=== PATIENT | female | born 1995 | race Two or more races ===

== ENCOUNTER 2024-07-16 18:18 | Observation (INO) | payer BC, SELFPAY ==
[2024-07-16] VITALS (30 sets, daily range): BP systolic 118–132; BP diastolic 63–77; PULSE 81–103; RESP 18–96; TEMP 36.9; O2SAT 97–100; BMI 33.6
--- NOTE | 2024-07-16 18:38 | XR_ITS ---
Examination: OB Transvaginal ultrasound of the pelvis, complete Technique: Transvaginal sonographic images pelvis performed using gamble scale imaging Exam date and time: July 16, 2024 at 1930 hrs. Indications: Vaginal bleeding and pelvic contractions beginning today Findings: Cervix 2.1 cm with funneling, measurement at the internal os 28 mm Impression: Marked cervical funneling .
[2024-07-16 18:53] LABS: Collection Type, Urine Clean Catch
[2024-07-16 19:02] LABS: Bilirubin,Urine Negative (Negative); Blood,Urine 2+ (Negative); Clarity,Urine Clear (Clear/Hazy); Color,Urine Colorless (Lt Yel-Yel); Culture Indicated,Urine Not Indicated; Glucose, Urine Negative (Negative); Ketones,Urine Negative (Negative); Leukocyte Esterase,Urine Negative (Negative); Nitrite,Urine Negative (Negative); PH,Urine 6.5 (5.0-7.0); Protein,Urine Negative (Neg - Trace); RBC,Urine 18 /hpf (0-3); Specific Gravity,Urine 1.008 (1.001-1.035); Squamous Epithelial Cell,Urine < 1 /hpf (0-5); Urobilinogen,Urine Negative mg/dL (0.0-1.0); WBC,Urine 1 /hpf (0-5)
[2024-07-16 19:11] LABS: Amphetamine/Metham Scrn,Ur OB Negative (Negative); Benzoylecgonine Screen, Ur OB Negative (Negative); Opiate Screen,Urine OB Negative (Negative); THC Screen,Urine OB Negative (Negative)
[2024-07-16 19:25] LABS: Basophils % (Auto) 0 % (0-2.5); Eosinophils # (Auto) 0.1 Thou/mm3 (0.0-0.5); Eosinophils % (Auto) 1 % (0-10); Hematocrit 35.9 % (36.0-46.0); Hemoglobin 11.9 g/dL (12.0-16.0); Immature Granulocytes % (Auto) 1 % (0-0); Immature Granulocytes Auto 0.06 Thou/mm3 (0.00-0.00); Lymphocytes # (Auto) 1.9 Thou/mm3 (1.0-4.8); Lymphocytes % (Auto) 21 % (10-50); Mean Corpuscular HGB Conc 33.1 g/dl (31.0-37.0); Mean Corpuscular Hemoglobin 28.5 pg (25.0-35.0); Mean Corpuscular Volume 86 fL (80-100); Monocytes # (Auto) 0.6 Thou/mm3 (0.0-0.8); Monocytes % (Auto) 6 % (0-12); Neutrophils # (Auto) 6.4 Thou/mm3 (1.8-7.7); Neutrophils % (Auto) 71 % (37-80); Nucleated Red Blood Cell % 0 /100 WBC (0); Platelet Count 294 Thou/mm3 (140-440); RDW Standard Deviation 46.5 fL (36.4-46.3); Red Blood Count 4.18 Miln/mm3 (4.00-5.20)
--- NOTE | 2024-07-16 19:34 | XR_ITS ---
Examination: Complete OB ultrasound greater than 14 weeks Date and time of exam: July 16, 2024 1958 hrs. Indications: Onset vaginal bleeding today Findings: Viable intrauterine single fetus with single amniotic sac presentation cephalic Cardiac motion 137 BPM Placenta posterior grade 2 Amniotic fluid index 16.2 cm spine maternal right Cervix 2.1 cm Ovaries obscured by bowel gas. Composite estimated gestational age based on BPD, head circumference, abdominal circumference, femur length is 27 weeks 1 day Estimated weight 102 g. Survey of intracranial anatomy, spinal anatomy, abdominal anatomy, four-chamber heart performed with no abnormalities identified. Impression: Viable intrauterine gestation cephalic presentation.
[2024-07-16 20:18] LABS: Alanine Aminotransferase 23 U/L (10-49); Albumin/Globulin Ratio 1.7 (1.2-2.2); Alkaline Phosphatase 68 U/L (46-116); Anion Gap 9 (7-16); Aspartate Amino Transferase 23 U/L (0-34); BUN/Creatinine Ratio 10 Ratio (12-20); Bilirubin,Total 0.3 mg/dL (0.3-1.2); Blood Urea Nitrogen < 5 mg/dL (9-23); Calcium 9.5 mg/dL (8.3-10.6); Calcium (Corrected) 9.5 mg/dL (8.5-10.1); Carbon Dioxide 24.2 mMol/L (20.0-31.0); Chloride 106 mMol/L (98-107); Creatinine (Component) 0.5 mg/dL (0.6-1.3); Estimated Creatinine Clearance 192.3 mL/min (>60); Globulin 2.4 gm/dL (2.3-3.5); Glucose 116 mg/dL (74-106); Osmolality,Calculated 275 (275-295); Potassium 3.9 mMol/L (3.4-5.1); Sodium 139 mMol/L (136-145); Total Protein 6.4 gm/dL (5.7-8.2); eGFR > 60 See Note
[2024-07-16 20:19] LABS: Fibrinogen 490 mg/dL (175-375); INR 0.9 (0.9-1.3); Partial Thromboplastin Time 27.3 Seconds (22.0-36.0); Prothrombin Time 10.2 Seconds (9.0-12.2)
--- NOTE | 2024-07-16 22:11 | ESHP_ITS ---
Documentation for date of: 07/16/24 OB Labor/Induct. HPI History of Present Illness History of present illness: 28 yo at 26+3 who presents with vaginal bleeding. notable for subchorionic bleeding in the 1TM. Patient reports having clots today. Reports both bright red bleeding and darker brown blood. No intercourse, no abdominal trauma. No pain or contractions. Normal movement. No pelvic pain and discharge. History of Present Adequate Care: Yes Labs Narrative: Rh positive Meds Home Medications and Allergies Home Medications ?Medication ?Instructions ?Recorded ?Confirmed ?Type vits no.130-ferrous fum 1 tab PO QDAY 07/16/24 07/16/24 History 27 mg iron-folic acid 800 mcg tablet ( Vitamin) Allergies Allergy/AdvReac Type Severity Reaction Status Date / Time No Known Allergies Allergy Verified 07/16/24 18:40 OB Exam Physical Exam Vital signs: Temp Pulse Resp BP Pulse Ox 98.5 F 81 18 132/77 H 100 07/16/24 18:35 07/16/24 19:16 07/16/24 18:35 07/16/24 19:16 07/16/24 21:49 Narrative: GEN: NAD RESP normal work of breathing ABD: gravid, non tender EXT: no calf tenderness SVE: closed/long/high FHT: Reactive, no decelerations, mod rena [place]: quiet US: Examination: Complete OB ultrasound greater than 14 weeks Date and time of exam: July 16, 2024 1958 hrs. Indications: Onset vaginal bleeding today Findings: Viable intrauterine single fetus with single amniotic sac presentation cephalic Cardiac motion 137 BPM Placenta posterior grade 2 Amniotic fluid index 16.2 cm spine maternal right Cervix 2.1 cm Ovaries obscured by bowel gas. Composite estimated gestational age based on BPD, head circumference, abdominal circumference, femur length is 27 weeks 1 day Estimated weight 102 g. Survey of intracranial anatomy, spinal anatomy, abdominal anatomy, four-chamber heart performed with no abnormalities identified. Impression: Viable intrauterine gestation cephalic presentation. TVUS: Findings: Cervix 2.1 cm with funneling, measurement at the internal os 28 mm Impression: Marked cervical funneling OB Results Labs 07/16/24 18:58 07/16/24 18:58 Labs: Short CBC 07/16/24 Range/Units 18:58 WBC 9.0 (3.6-11.0) Thou/mm3 Hgb 11.9 L (12.0-16.0) g/dL Hct 35.9 L (36.0-46.0) % Plt Count 294 (140-440) Thou/mm3 BMP 07/16/24 18:58 Sodium 139 Potassium 3.9 Chloride 106 Carbon Dioxide 24.2 BUN < 5 L Creatinine 0.5 L Glucose 116 H Calcium 9.5 Liver Function 07/16/24 Range/Units 18:58 Total Bilirubin 0.3 (0.3-1.2) mg/dL AST 23 (0-34) U/L ALT 23 (10-49) U/L Alkaline Phosphatase 68 (46-116) U/L Albumin 4.0 (3.5-5.0) gm/dL Urine 07/16/24 Range/Units 18:30 Urine Color Colorless A (Lt Yel-Yel) Urine Clarity Clear (Clear/Hazy) Urine pH 6.5 (5.0-7.0) Ur Specific [place] 1.008 (1.001-1.035) Urine Protein Negative (Neg - Trace) Urine Glucose (UA) Negative (Negative) OB Assessment & Plan Assessment and Plan (1) Progressive shortening of cervix: Status: Acute (2) Vaginal bleeding: Status: Acute Additional Plan Additional Plan Comment: 28 yo at 26+3 who presents with vaginal bleeding and with 2.1cm cervix. Vaginal bleeding with CL of 2.1cm at 26 weeks - Admit to obs for monitoring - Rh positive H/H stable with no signs of hemodynamic instability - no signs of placental abruption, low lying placenta, infection - cervical length with funneling and 2.1cm, now >24 weeks with no history of PTB. We discussed than CL<2.0cm <24 weeks with no hx of PTB is associated with PTB and would warrant vaginal progesterone. There is no reported CL and no TVUS from her anatomy US per the patient report. Currently, there is no sign of contractions or labor; however I would like to monitor her bleeding and serial cervical exams to ensure there is no cervical change. Given the shortened cervix, recommend BMZ for lung maturity, but will hold of on mag gtt given low suspicious for imminent delivery. Although she is past 24 weeks, I would recommend vaginal progesterone daily if she continues to stay . FWB: NST reactive, will repeat daily VTE PPX: none
[2024-07-16] MEDS: BETAMET ACET/BETAMET NA PH (Celestone) 6 MG/ML VIAL 12 MG IM (22:41)
[2024-07-17] VITALS (15 sets, daily range): BP systolic 109–125; BP diastolic 55–79; PULSE 18–102; RESP 18; TEMP 36.5–36.9; O2SAT 95–98
[2024-07-17 09:38] LABS: Chlamydia trachomatis PCR Negative (Not Detect); Neisseria Gonorrhoeae DNA PCR Negative (Not Detect); Trichomonas Negative (Negative)
--- NOTE | 2024-07-17 10:39 | ESPR_ITS ---
Documentation for date of: 07/17/24 OB Labor Progress Note Pain Control Comments: 28 yo at 26+3 who presents with vaginal bleeding and with 2.1cm cervix admitted for monitoring. HD2 No acute events overnight. She had one episode of pink/red bleeding this AM at around 6AM. Since then for over 12 hours, she has not had any additional episode, only some brown spotting with wiping. No contractions or pelvic pressures, no LOF. Pelvic Exam Comments: GEN: NAD RESP normal work of breathing ABD: gravid, non tedner SVE: closed, long, high (cervix is soft) but has not changed over multiple exams by same examiner Status Comments: Normal baseline, mod variability, rare variable decels c/w gestational age [place]: quiet Assessment and Plan Comments: Vaginal bleeding x1 - Now >12 hours since last active bleed, Rh positive and no signs of hemodynamically instability, abuprtion, or labor, infection - Discharge home with strict return precautions Short cervix 2.1cm at 26 weeks - No signs of labor after 24 hours obs - s/p BMZ #2 (07/17 ~2199) - GBS collected, cephalic - will start vaginal progesterone 200mg QHS, instructions given Patient has follow-up in OBGYN clinic this upcoming week. Strict return precautions: bleeding, LOF, contractions to return to hospital immediately.
[2024-07-17] MEDS: BETAMET ACET/BETAMET NA PH (Celestone) 6 MG/ML VIAL 12 MG IM (21:51)
== END 2024-07-17 21:55 | disposition home or self-care (01) ==
PROVIDERS: Admitting Provider Obstetrics & Gynecology; Visit Provider Obstetrics & Gynecology
DX: O46.92 Antepartum hemorrhage, unspecified, second trimester (principal); O26.872 Cervical shortening, second trimester; O36.0920 Maternal care for other rhesus isoimmunization, second trimester, not applicable or unspecified; Z3A.27 27 weeks gestation of pregnancy
CPT/HCPCS: 36415; 59899; 76805; 76817; 80053; 80307; 81001; 85025; 85384; 85610; 85730; 86780; 86850; 86900; 86901; 87081; 87491; 87591; 87661; 96372; J0702

== ENCOUNTER 2024-07-22 14:35 | Observation (INO) | payer BC, SELFPAY ==
[2024-07-22] VITALS (81 sets, daily range): BP systolic 97–129; BP diastolic 60–80; PULSE 81–117; RESP 16–99; TEMP 36.7; O2SAT 93–99
--- NOTE | 2024-07-22 14:40 | XR_ITS ---
Examination: age Limited TECHNIQUE: Limited transabdominal sonographic images pelvis Exam date and time: July 22, 2024 1544 hours INDICATIONS: Diagnosis cervical dilatation on examination by physician today FINDINGS: Viable intrauterine gestation cephalic presentation spine maternal left Estimated weight 1328.9 g Estimated age 29 weeks 0 days Cardiac motion 150 BPM IMPRESSION: Viable intrauterine gestation cephalic presentation
[2024-07-22] MEDS: Magnesium Sulfate 4 GM Ivpb 4 GM/50 ML BAG IV (15:04)
[2024-07-22] MEDS: Ampicillin Inj 2,000 MG in SODIUM CHLORIDE 0.9% (P) 100 ML 100 MG IV (15:05)
[2024-07-22] MEDS: RINGERS LACTATED 1000 ML 1,000 ML 999 ML IV (15:06)
[2024-07-22 15:15] LABS: Collection Type, Urine Clean Catch
[2024-07-22 15:30] LABS: Basophils % (Auto) 0 % (0-2.5); Eosinophils # (Auto) 0.1 Thou/mm3 (0.0-0.5); Eosinophils % (Auto) 1 % (0-10); Hematocrit 37.1 % (36.0-46.0); Hemoglobin 12.8 g/dL (12.0-16.0); Immature Granulocytes % (Auto) 1 % (0-0); Lymphocytes # (Auto) 2.2 Thou/mm3 (1.0-4.8); Lymphocytes % (Auto) 21 % (10-50); Mean Corpuscular HGB Conc 34.5 g/dl (31.0-37.0); Mean Corpuscular Volume 84 fL (80-100); Monocytes # (Auto) 0.7 Thou/mm3 (0.0-0.8); Monocytes % (Auto) 6 % (0-12); Neutrophils # (Auto) 7.3 Thou/mm3 (1.8-7.7); Neutrophils % (Auto) 71 % (37-80); Nucleated Red Blood Cell % 0 /100 WBC (0); Platelet Count 320 Thou/mm3 (140-440); RDW Standard Deviation 44.9 fL (36.4-46.3); Red Blood Count 4.42 Miln/mm3 (4.00-5.20); White Blood Count 10.3 Thou/mm3 (3.6-11.0)
[2024-07-22 15:38] LABS: Bilirubin,Urine Negative (Negative); Blood,Urine 1+ (Negative); Clarity,Urine Turbid (Clear/Hazy); Color,Urine Yellow (Lt Yel-Yel); Glucose, Urine Trace (Negative); Ketones,Urine Negative (Negative); Leukocyte Esterase,Urine Positive (Negative); Nitrite,Urine Negative (Negative); PH,Urine 6.5 (5.0-7.0); Protein,Urine Trace (Neg - Trace); RBC,Urine 1 /hpf (0-3); Specific Gravity,Urine 1.022 (1.001-1.035); Squamous Epithelial Cell,Urine 7 /hpf (0-5); Urobilinogen,Urine Negative mg/dL (0.0-1.0); WBC,Urine 28 /hpf (0-5)
[2024-07-22] MEDS: MAGNESIUM SULF 20 GM IVPB 20 GM/500 ML BAG IV (15:38)
[2024-07-22 15:47] LABS: Alanine Aminotransferase 21 U/L (10-49); Albumin, Serum 4.4 gm/dL (3.5-5.0); Albumin/Globulin Ratio 1.8 (1.2-2.2); Alkaline Phosphatase 73 U/L (46-116); Anion Gap 12 (7-16); Aspartate Amino Transferase 14 U/L (0-34); BUN/Creatinine Ratio 15 Ratio (12-20); Bilirubin,Total 0.2 mg/dL (0.3-1.2); Blood Urea Nitrogen 9 mg/dL (9-23); Calcium 9.1 mg/dL (8.3-10.6); Calcium (Corrected) 9.1 mg/dL (8.5-10.1); Carbon Dioxide 22.6 mMol/L (20.0-31.0); Chloride 104 mMol/L (98-107); Creatinine (Component) 0.6 mg/dL (0.6-1.3); Globulin 2.4 gm/dL (2.3-3.5); Glucose 124 mg/dL (74-106); LDH (Lactate Dehydrogenase) 148 U/L (120-246); Osmolality,Calculated 277 (275-295); Potassium 3.7 mMol/L (3.4-5.1); Sodium 139 mMol/L (136-145); Total Protein 6.8 gm/dL (5.7-8.2); eGFR > 60 See Note
[2024-07-22] MEDS: AZITHROMYCIN INJ 500 MG in SODIUM CHLORIDE 0.9% 250 ML 250 ML 250 MG IV (15:47)
--- NOTE | 2024-07-22 16:27 | ESHP_ITS ---
Documentation for date of: 07/22/24 OB Labor/Induct. HPI History of Present Illness History of present illness: H and P dictated on STAT line #9 in [employer]uance # [id number] History of Present Adequate Care: Yes Meds Home Medications and Allergies Home Medications ?Medication ?Instructions ?Recorded ?Confirmed ?Type vits no.130-ferrous fum 1 tab PO QDAY 07/16/24 07/16/24 History 27 mg iron-folic acid 800 mcg tablet ( Vitamin) Allergies Allergy/AdvReac Type Severity Reaction Status Date / Time No Known Allergies Allergy Verified 07/16/24 18:40 OB Exam Physical Exam Vital signs: Temp Pulse Resp BP Pulse Ox 98.0 F 100 18 129/67 97 07/22/24 15:23 07/22/24 16:22 07/22/24 15:23 07/22/24 16:22 07/22/24 16:26 OB Results Labs 07/22/24 14:57 07/22/24 14:57 Labs: Short CBC 07/22/24 Range/Units 14:57 WBC 10.3 (3.6-11.0) Thou/mm3 Hgb 12.8 (12.0-16.0) g/dL Hct 37.1 (36.0-46.0) % Plt Count 320 (140-440) Thou/mm3 BMP 07/22/24 14:57 Sodium 139 Potassium 3.7 Chloride 104 Carbon Dioxide 22.6 BUN 9 Creatinine 0.6 Glucose 124 H Calcium 9.1 Liver Function 07/22/24 Range/Units 14:57 Total Bilirubin 0.2 L (0.3-1.2) mg/dL AST 14 (0-34) U/L ALT 21 (10-49) U/L Alkaline Phosphatase 73 (46-116) U/L Albumin 4.4 (3.5-5.0) gm/dL Urine 07/22/24 Range/Units 14:57 Urine Color Yellow (Lt Yel-Yel) Urine Clarity Turbid A (Clear/Hazy) Urine pH 6.5 (5.0-7.0) Ur Specific [place] 1.022 (1.001-1.035) Urine Protein Trace (Neg - Trace) Urine Glucose (UA) Trace (Negative)
--- NOTE | 2024-07-22 16:42 | PC.NURSE ---
1553 Candido PEREZ called into unit to notify [facility] Dr. Omer has accepted transfer, will come in to discuss POC of patient. 1558 Charge Nurse Cathleen called and given report on patient 1602 Candido PEREZ at bedside, POC discussed with patient to transfer to a higher level of care. All questions answered, patient agrees at this time. 1610 Per Cathleen preparation center coordinator, [facility] has accepted patient but transfer is delayed until possibly after 1999. Candido DO aware 1645 Candido Perez at bedside, POC regarding possible transfer to [facility] or [facility], whichever facility accepts patient sooner. Patient agrees
--- NOTE | 2024-07-22 16:44 | PC.CM ---
Addendum entered by Cathleen Saini RN 07/22/24 18:45: I spoke to Sarah shelbycommercial housekeeper at [facility]. [phone]. She states she did receive the paperwork . Sarah states we can call them back after speaking to [facility] if they are not able to accept at 1999. I called bed side nurse and I gave her the update. I took packet to OB and handed off to night charge nurse. Addendum entered by Cathleen Saini RN 07/22/24 18:03: Packet started along with pink transfer form and CD. I spoke to bedside nurse and charge and I gave them an update on transfer. Original Note: [id number] I received a request for transfer on patient for labor. I was told [facility] was contacted and patient was accepted by Dr. Fleming. I contacted [facility] and I spoke to Dominag. She stated they Dr. Fleming did accept patient but they placed patient on delay because they do not have any beds at this time. I spoke to Dr. Rey and he states Dr. Fleming is a Maternal Medicine doctor and he thinks she might have privileges at [facility]. I contacted [facility] and spoke to afsaneh Smith. She stated Dr. Fleming does not have privileges at their facility but i could send information if I liked. I will fax over information.
[2024-07-22 17:40] LABS: Magnesium 3.6 mg/dL (1.6-2.6)
[2024-07-22] MEDS: Ampicillin Inj 1,000 MG in SODIUM CHLORIDE 0.9% (P) 50 ML 50 MG IV (18:11)
[2024-07-22 18:45] LABS: Fibrinogen 490 mg/dL (175-375); INR 0.9 (0.9-1.3); Partial Thromboplastin Time 25.7 Seconds (22.0-36.0); Prothrombin Time 9.8 Seconds (9.0-12.2)
--- NOTE | 2024-07-23 07:10 | ESHP_ITS ---
RE: MARGARET SILVA : 1995 DATE OF ADMISSION: 07/22/2024 HISTORY OF PRESENT ILLNESS: This is a 28-year-old 2, para 0-0-1-0 with intrauterine at 28 weeks who presents to Labor and Delivery after a referral from the office where she was noted to have a cervix dilated 2-3 cm with bulging amniotic sac. The patient denies any contractions. She denies any leaking. She denies any bleeding. She reports normal movement. She was hospitalized 6 days ago on 07/16 and 07/17 for vaginal bleeding. At that time, her cervix was reported to be long and closed; however, a transvaginal ultrasound showed the cervical length at 2.1 cm. The patient was observed overnight and given betamethasone x2 and discharged home. Her white count was normal. She was afebrile. She did not need any tocolytics and she had been doing fine with no complaints or problems. She presented to our office for the first time in her as a transfer of care from [facility] and on her sterile speculum exam today was noted to be 2-3 cm dilated. An ultrasound done at [facility] today reveals the estimated weight of 1325 g, cephalic, adequate amniotic fluid. She has been monitored now for 90 minutes and there are no contractions. She has got a category 1 tracing. There are no decelerations. Her white blood cell count is normal. PAST MEDICAL HISTORY: Denies. PAST SURGICAL HISTORY: Denies. ALLERGIES: No known drug allergies. MEDICATIONS: multivitamin 1 p.o. daily. SOCIAL HISTORY: She denies any alcohol, drug use, or smoking. OBSTETRIC HISTORY: 2000, 6 weeks spontaneous AB, no D and C. REVIEW OF SYSTEMS: She denies any chest pain, palpitations, cough, fever, shortness of breath, or lower extremity pain. She denies any headache, change in vision or right upper quadrant pain. PHYSICAL EXAMINATION: VITAL SIGNS: Blood pressure 129/67, heart rate 100, respirations 18, temperature 98.6, pulse ox is 97% on room air. HEENT: Oropharynx and sclerae are clear. LUNGS: Clear to auscultation bilaterally. HEART: Regular rate and rhythm. ABDOMEN: 28 cm. Nontender fundus. No palpable contractions. Sterile speculum exam reveals cervix 2-3 cm dilated, bulging membranes. Cervix appears to be completely effaced. No discharge noted. No bleeding noted. No fluid seen. EXTREMITIES: Nontender. SKIN: No gross rashes or lesions. NEUROLOGIC: No focal deficits. ASSESSMENT: Intrauterine at 28 weeks, threatened labor, incompetent cervix. PLAN: Magnesium sulfate for CVS neuroprotection, ampicillin and Zithromax for latency antibiotics, status post betamethasone on 07/16 and 07/17. Plan, transfer of care to the tertiary care facility. I discussed the patient with the maternal medicine specialist at [facility], Dr. Lotus Omer, who agreed to accept the patient for transfer. I discussed with the patient and her the nature of her condition, the current findings, and the recommendation for transfer, and they agree. I discussed the risks, complications, alternatives, and benefits of transfer and they verbalized understanding and agreed to proceed with transfer. DT: 16:26:41 TT: 17:52:00 Ref: [id number] - TID: [id number]
== END 2024-07-22 21:16 | disposition short-term general hospital (02) ==
PROVIDERS: Admitting Provider Specialist; Visit Provider Specialist
DX: O60.03 Preterm labor without delivery, third trimester (principal); O34.33 Maternal care for cervical incompetence, third trimester; Z3A.28 28 weeks gestation of pregnancy
CPT/HCPCS: 36415; 59025; 59899; 76815; 80053; 81001; 83615; 83735; 84550; 85025; 85384; 85610; 85730; 86850; 86900; 86901; J0290; J0456; J3475; J7050; J7120

== ENCOUNTER → 2024-07-23 | Outpatient (CLI) | payer BC, SELFPAY ==
[2024-07-23 14:41] LABS: Collection Type, Urine Clean Catch
[2024-07-23 16:10] LABS: Bacteria,Urine Rare; Bilirubin,Urine Negative (Negative); Blood,Urine Negative (Negative); Clarity,Urine Turbid (Clear/Hazy); Color,Urine Yellow (Lt Yel-Yel); Glucose, Urine Negative (Negative); Ketones,Urine Negative (Negative); Leukocyte Esterase,Urine Positive (Negative); Nitrite,Urine Negative (Negative); Protein,Urine Trace (Neg - Trace); RBC,Urine 3 /hpf (0-3); Squamous Epithelial Cell,Urine 9 /hpf (0-5); Urobilinogen,Urine Negative mg/dL (0.0-1.0); WBC,Urine 19 /hpf (0-5)
[2024-07-24 12:25] LABS: BVAG Candida Positive (Negative); Bacterial Vaginosis Markers Positive (Negative); Candida glabrata Negative (Negative); Candida krusei PCR Negative (Negative); Trichomonas Negative (Negative)
== END | disposition home or self-care (01) ==
LOC: SLDO 14:15
PROVIDERS: Referring Provider Specialist; Visit Provider Specialist
DX: Z34.82 Encounter for supervision of other normal pregnancy, second trimester (principal); B37.89 Other sites of candidiasis; N76.0 Acute vaginitis; A59.01 Trichomonal vulvovaginitis
CPT/HCPCS: 81001; 81514; 87086

== ENCOUNTER 2024-08-07 00:32 | Observation (INO) | payer BC, SELFPAY ==
[2024-08-07 00:52] VITALS: BP 127/67; PULSE 85; RESP 100; RESP 18; TEMP 36.7
[2024-08-07 00:55] VITALS: BMI 33.7
[2024-08-07] MEDS: Magnesium Sulfate 4 GM Ivpb 4 GM/50 ML BAG IV (01:25)
[2024-08-07] MEDS: Ampicillin Inj 2,000 MG in SODIUM CHLORIDE 0.9% (P) 100 ML 200 MG IV (01:34)
[2024-08-07] MEDS: BETAMET ACET/BETAMET NA PH (Celestone) 6 MG/ML VIAL 12 MG IM (01:36)
[2024-08-07] MEDS: MAGNESIUM SULF 20 GM IVPB 20 GM/500 ML BAG IV (01:37)
--- NOTE | 2024-08-07 01:40 | PC.NURSE ---
Pt refusing F/C insertion. Pt educated on risks vs. benefits. Pt cont. to decline insertion. Dr Rey notified.
--- NOTE | 2024-08-07 01:56 | PD.LDANTE ---
Documentation for date of: 08/07/24 OB Labor/Induct. HPI History of Present Illness History of present illness: Dictated in [employer] under STAT line [id number] History of Present Adequate Care: Yes Meds Home Medications and Allergies Home Medications ?Medication ?Instructions ?Recorded ?Confirmed ?Type vits no.130-ferrous fum 1 tab PO QDAY 07/16/24 08/07/24 History 27 mg iron-folic acid 800 mcg tablet ( Vitamin) Allergies Allergy/AdvReac Type Severity Reaction Status Date / Time No Known Allergies Allergy Verified 08/07/24 00:57 OB Exam Physical Exam Vital signs: Temp Pulse Resp BP 98.1 F 85 18 127/67 08/07/24 00:52 08/07/24 00:52 08/07/24 00:52 08/07/24 00:52 OB Results Labs 08/07/24 01:30
[2024-08-07 02:00] LABS: Basophils % (Auto) 0 % (0-2.5); Eosinophils # (Auto) 0.1 Thou/mm3 (0.0-0.5); Eosinophils % (Auto) 1 % (0-10); Hematocrit 36.2 % (36.0-46.0); Hemoglobin 12.2 g/dL (12.0-16.0); Immature Granulocytes % (Auto) 1 % (0-0); Immature Granulocytes Auto 0.07 Thou/mm3 (0.00-0.00); Lymphocytes # (Auto) 2.4 Thou/mm3 (1.0-4.8); Lymphocytes % (Auto) 25 % (10-50); Mean Corpuscular HGB Conc 33.7 g/dl (31.0-37.0); Mean Corpuscular Hemoglobin 28.6 pg (25.0-35.0); Mean Corpuscular Volume 85 fL (80-100); Monocytes # (Auto) 0.6 Thou/mm3 (0.0-0.8); Monocytes % (Auto) 6 % (0-12); Neutrophils # (Auto) 6.5 Thou/mm3 (1.8-7.7); Neutrophils % (Auto) 68 % (37-80); Nucleated Red Blood Cell % 0 /100 WBC (0); Platelet Count 267 Thou/mm3 (140-440); RDW Standard Deviation 46.5 fL (36.4-46.3); Red Blood Count 4.27 Miln/mm3 (4.00-5.20); White Blood Count 9.6 Thou/mm3 (3.6-11.0)
[2024-08-07 02:11] VITALS: BP 115/58; PULSE 77
[2024-08-07] MEDS: AZITHROMYCIN INJ 500 MG in SODIUM CHLORIDE 0.9% 250 ML 250 ML 250 MG IV (02:11)
[2024-08-07 02:32] VITALS: BP 115/58; PULSE 82
== END 2024-08-07 02:50 | disposition short-term general hospital (02) ==
LOC: S4SX 00:45
PROVIDERS: Admitting Provider Specialist; Visit Provider Specialist
DX: Z34.83 Encounter for supervision of other normal pregnancy, third trimester (principal); Z3A.29 29 weeks gestation of pregnancy
CPT/HCPCS: 36415; 59899; 85025; 86850; 86900; 86901; 96372; J0290; J0456; J0702; J3475; J7050